=== PATIENT | female | born 2000 | race Caucasian/White ===

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

== ENCOUNTER 2022-05-14 00:31 | Emergency (ER) | payer MEDICAID | END 2022-05-14 05:38 | disposition home or self-care (01) | LOC: KA.ED 00:31 | DX: T43.292A Poisoning by other antidepressants, intentional self-harm, initial encounter (principal); Z79.899 Other long term (current) drug therapy | CPT/HCPCS: 36415; 80143; 93005; 99285 ==